=== PATIENT | female | born 1980 | race Caucasian/White ===

== ENCOUNTER 2022-02-09 08:55 | Observation (INO) | payer BC, SELFPAY ==
--- NOTE | ~2022-02-09 | XR_ITS ---
EXAMINATION: XR HAND, RIGHT CLINICAL INFORMATION: Infection COMPARISON: None TECHNIQUE: PA, lateral, and oblique views of the right hand. FINDINGS: The bones and soft tissues are normal. No fracture. Alignment is anatomic. Joint spaces are maintained. No erosions or soft tissue calcifications. XR/XR hand RT 2V IMPRESSION: No acute osseous abnormality of the right hand.
[2022-02-09 09:09] VITALS: BP 125/73; PULSE 75; RESP 16; TEMP 36.4; O2SAT 100; BMI 31.1
--- NOTE | 2022-02-09 09:16 | ED.GENADULT ---
HPI - General Adult General Chief complaint: Skin/Abscess/Foreign Body Stated complaint: Insect bite Time Seen by Provider: 02/09/22 09:16 Source: patient Mode of arrival: ambulatory Limitations: no limitations History of Present Illness HPI narrative: Patient is a 41 year old assigned female at with no reported medical history presenting to the emergency department today with a worsening right hand infection. Patient states that 3 days ago she got bit by something on her right hand and it began to itch. Patient states that 2 days ago she noticed it was swollen and red so she went to the urgent care and was started on Doxycycline. Patient states that it is not getting better and it is actually getting worse with streaking up her right arm now. Patient states that it is difficult to flex her right fingers secondary to pain. Patient denies any dizziness, lightheadedness, abdominal pain, nausea, vomiting, fever, chills, blurry vision, double vision, loss of vision, chest pain, difficulty breathing, shortness of breath, back pain, night sweats, pain with urination, increased urinary frequency, increased urinary urgency, blood in her urine or stool, syncope or a near syncopal episode, bowel incontinence, bladder incontinence, bowel retention, bladder retention, or any other complaints at this time. Onset (ago): day(s) (3) Location: right and upper extremity Radiation: non-radiation Severity: moderate Severity scale (1-10): 4 Relieving factors: none Exacerbating factors: movement Associated symptoms: denies other symptoms Treatments prior to arrival: other (doxycycline) Related Data Allergies Allergy/AdvReac Type Severity Reaction Status Date / Time No Known Allergies Allergy Verified 02/09/22 09:08 Review of Systems Constitutional: Constitutional: Reports no additional constitutional complaints, Denies chills, Denies fever(s) and Denies night sweats Eyes: Eyes: Reports no additional eye complaints, Denies blurry vision, Denies change in vision, Denies diplopia, Denies eye discharge, Denies loss of vision and Denies eye pain ENT: Denies dizziness Cardiovascular: Cardiovascular: Reports no additional cardiovascular complaints, Denies chest pain, Denies lightheadedness, Denies Loss of Consciousness and Denies dyspnea Respiratory: Respiratory: Reports no additional respiratory complaints and Denies dyspnea Gastrointestinal: Gastrointestinal: Reports no additional gastrointestinal complaints, Denies abdominal pain, Denies melena, Denies hematochezia, Denies change in bowel habits and Denies change in stool character Genitourinary: Genitourinary: Denies hematuria, Denies urinary frequency, Denies dysuria, Denies urinary incontinence, Denies urinary hesitancy and Denies urinary urgency Musculoskeletal: Musculoskeletal: Reports no additional musculoskeletal complaints, Denies numbness and Denies tingling Comments: right hand pain, right hand swelling Neurologic: Denies dizziness, Denies loss of vision, Denies numbness and Denies tingling Psychiatric: Psychiatric: Reports no additional psychiatric complaints Endocrine: Endocrine: Reports no additional endocrine complaints Hematologic/Lymphatic: Hematologic/Lymphatic: Reports no additional hematologic/lymphatic complaints Allergic/Immunologic: Allergic/Immunologic: Reports no additional allergic/immunologic complaints [facility] Past Medical History Attestation statement: The following information was validated with the patient. Source: old records reviewed Social History Social History Advance Directives: Yes Advance Directives Information Provided: Yes Advance Directives on File: No Physical Exam ED Vital Signs: Vital Signs - 24 hr 02/09/22 09:09 Temperature 97.6 F Pulse Rate 75 Respiratory Rate 16 Blood Pressure 125/73 Pulse Oximetry 100 Oxygen Delivery Method Room Air BMI result Body Mass Index 31.1 Const General: cooperative, no acute distress, alert and awake Nutritional Appearance: well nourished Orientation/consciousness: patient oriented x3 Limitations: no limitations HENMT Head: Yes normal to inspection and Yes atraumatic Ears: hearing grossly normal bilaterally and external ears normal General nose exam: Normal external nose present, no nasal discharge noted and no epistaxis Face and sinus: Yes normal facial exam, No abrasion and No laceration Mouth: Normal oral and palatal mucosa present, no drooling and no muffled voice Eyes General: appearance normal, both eyes and all related structures Periorbital: periorbital findings normal Eyelids: Yes eyelids normal Conjunctivae: conjunctivae normal Pupils: Equal, round and reactive pupils present EOM: EOMs intact bilaterally Neck Neck: Yes normal visual inspection, Yes full ROM and Yes no lymphadenopathy Chest Chest palpation & inspection: normal inspection of the chest Resp Effort & Inspection: normal respiratory effort and able to speak in complete sentences Auscultation: clear to auscultation bilaterally Cardio Rate: regular rate Rhythm: regular rhythm GI Inspection: Yes normal to inspection Neuro General: patient oriented x3 and moves all extremities Cranial nerves: Yes Equal, round and reactive pupils present Cognition (Neuro): normal cognition Motor exam (neuro): 5/5 motor strength present throughout Sensory Exam: Normal double simultaneous stimulation for sensation Coordination: [id number] test normal Extrem Other: ROM of the right hand reduced secondary to pain, specifically with eflexion of the MCP joint General: Yes capillary refill normal Psych Appearance: grossly normal Mental Status: mental status grossly normal Affect: normal affect Attitude: cooperative Thought process: Normal thought process present Thought content: Normal thought content present Insight: Good insight present (Psych) Medical Decision Making MDM Narrative Medical decision making narrative: Patient is a 41 year old assigned female at with no reported medical history presenting to the emergency department today with right hand pain. Patient's physical exam showed erythema, swelling, and warmth to the right dorsal hand as pictured in the chart with distal streaking up the right arm. Patient's blood work showed an elevated CRP but was otherwise unremarkable. Patient's right hand x-ray showed no acute process. Patient was given IV Zosyn while in the department. Patient is not septic. Patient's current clinical presentation is most consistent with cellulitis that has failed out patient treatment. I spoke to the hospitalist team who agreed to hospital admission. I explained my physical exam findings as well as all test results to the patient. I answered all questions asked by the patient. Patient verbalized agreement and understanding with this treatment plan and admission. Medical Records Medical records reviewed: Yes I reviewed the patient's medical records. Lab Data Lab results reviewed: Yes I reviewed the patient's lab results. Result diagrams: 02/09/22 09:42 02/09/22 09:42 Labs: Lab Results 02/09/22 02/09/22 02/09/22 Range/Units 09:41 09:42 09:42 WBC 7.3 (4.8-10.8) X10*3/uL RBC 4.85 (4.20-5.50) X10*6/uL Hgb 11.5 L (12.0-16.0) g/dl Hct 37.4 (37.0-47.0) % MCV 77.1 L (80.0-98.0) fL MCH 23.7 L (27.0-33.0) pg MCHC 30.7 L (31.0-35.0) g/dl RDW 14.6 (11.0-16.0) % Plt Count 307 (160-400) X10*3/uL MPV 8.8 L (9.4-12.3) fL Immature Gran % (Auto) 0.3 (0.0-0.4) % Neut % (Auto) 64.4 (45-73) % Lymph % (Auto) 25.9 (20-40) % Nelson % (Auto) 6.9 (2-11) % Eos % (Auto) 2.1 (0-4) % Baso % (Auto) 0.4 (0-2) % Lymph # (Auto) 1.9 (1.2-4.9) X10*3/uL Nelson # (Auto) 0.5 (0.1-1.2) X10*3/uL Eos # (Auto) 0.2 (0.0-0.4) X10*3/uL Baso # (Auto) 0.0 (0.0-0.2) X10*3/uL Abs Immat Gran (auto) 0.02 (0.00-0.03) X10*3/uL Absolute Neuts (auto) 4.7 (2.0-8.3) x10*3/uL Absolute Nucleated RBC 0.000 (0.0-0.012) X10*3/uL Nucleated RBC % (auto) 0.0 (0.0-0.2) /100WBC ESR 14 (0-20) MM/HR Sodium (135-145) mmol/L Potassium (3.3-5.1) mmol/L Chloride (96-108) mmol/L Carbon Dioxide (22-29) mmol/L Anion Gap (12-20) BUN (9-16) mg/dL Creatinine (0.5-1.4) mg/dL Estim Creat Clear Calc Estimated GFR Random Glucose (60-115) mg/dL Lactic Acid 1.9 (0.5-2.0) mmol/L Calcium (8.4-10.2) mg/dL Total Bilirubin (0.0-1.0) mg/dL AST (5-31) U/L ALT (0-31) U/L Alkaline Phosphatase (39-117) U/L C-Reactive Protein (< or = 0.50) mg/dL Total Protein (6.5-8.0) g/dL Albumin (3.5-5.0) g/dL COVID-19 (DIONNA) (Negative) COVID-19 Clin Com 02/09/22 02/09/22 Range/Units 09:42 09:52 WBC (4.8-10.8) X10*3/uL RBC (4.20-5.50) X10*6/uL Hgb (12.0-16.0) g/dl Hct (37.0-47.0) % MCV (80.0-98.0) fL MCH (27.0-33.0) pg MCHC (31.0-35.0) g/dl RDW (11.0-16.0) % Plt Count (160-400) X10*3/uL MPV (9.4-12.3) fL Immature Gran % (Auto) (0.0-0.4) % Neut % (Auto) (45-73) % Lymph % (Auto) (20-40) % Nelson % (Auto) (2-11) % Eos % (Auto) (0-4) % Baso % (Auto) (0-2) % Lymph # (Auto) (1.2-4.9) X10*3/uL Nelson # (Auto) (0.1-1.2) X10*3/uL Eos # (Auto) (0.0-0.4) X10*3/uL Baso # (Auto) (0.0-0.2) X10*3/uL Abs Immat Gran (auto) (0.00-0.03) X10*3/uL Absolute Neuts (auto) (2.0-8.3) x10*3/uL Absolute Nucleated RBC (0.0-0.012) X10*3/uL Nucleated RBC % (auto) (0.0-0.2) /100WBC ESR (0-20) MM/HR Sodium 139 (135-145) mmol/L Potassium 4.4 (3.3-5.1) mmol/L Chloride 105 (96-108) mmol/L Carbon Dioxide 24 (22-29) mmol/L Anion Gap 14 (12-20) BUN 7 L (9-16) mg/dL Creatinine 0.80 (0.5-1.4) mg/dL Estim Creat Clear Calc 104.1 Estimated GFR > 60 Random Glucose 91 (60-115) mg/dL Lactic Acid (0.5-2.0) mmol/L Calcium 9.6 (8.4-10.2) mg/dL Total Bilirubin 0.4 (0.0-1.0) mg/dL AST 16 (5-31) U/L ALT 18 (0-31) U/L Alkaline Phosphatase 93 (39-117) U/L C-Reactive Protein 2.10 H (< or = 0.50) mg/dL Total Protein 7.5 (6.5-8.0) g/dL Albumin 4.4 (3.5-5.0) g/dL COVID-19 (DIONNA) Negative (Negative) COVID-19 Clin Com See Note Imaging Data Right hand x-ray: Attestation: I personally reviewed and interpreted this imaging study as follows: My impression: No acute moe process. Radiologist's impression: EXAMINATION: XR HAND, RIGHT CLINICAL INFORMATION: Infection? COMPARISON: None? TECHNIQUE: PA, lateral, and oblique views of the right hand. FINDINGS: The bones and soft tissues are normal. No fracture. Alignment is anatomic. Joint spaces are maintained. No erosions or soft tissue calcifications.? XR/XR hand RT 2V IMPRESSION: No acute osseous abnormality of the right hand. Dictated By: Monroe Hicks MD Signed By: Electronically signed by Monroe Hicks MD 02/09/22 1026 Critical Care Time Critical Care Time Critical Care Time: Yes Total Critical Care Time: 30 Attestation: I spent 30 minutes of Critical Care Time with this patient. This does not include time spent on separately reported billable procedures. Discharge Plan Discharge Clinical Impression: Cellulitis Patient Disposition: Admitted As Inpatient
[2022-02-09 09:48] LABS: MANUAL DIFF FLAG NO
[2022-02-09 09:49] LABS: Basophils Percent Auto 0.4 % (0-2); Eosinophils Absolute Auto 0.2 X10*3/uL (0.0-0.4); Eosinophils Percent Auto 2.1 % (0-4); Hematocrit 37.4 % (37.0-47.0); Hemoglobin 11.5 g/dl (12.0-16.0); Imm Gran Abs Auto 0.02 X10*3/uL (0.00-0.03); Imm Gran Pct Auto 0.3 % (0.0-0.4); Lymphocytes Absolute Auto 1.9 X10*3/uL (1.2-4.9); Lymphocytes Percent Auto 25.9 % (20-40); Mean Corpuscular HGB Conc 30.7 g/dl (31.0-35.0); Mean Corpuscular Hemoglobin 23.7 pg (27.0-33.0); Mean Corpuscular Volume 77.1 fL (80.0-98.0); Mean Platelet Volume 8.8 fL (9.4-12.3); Monocytes Absolute Auto 0.5 X10*3/uL (0.1-1.2); Monocytes Percent Auto 6.9 % (2-11); Neutrophils Absolute Auto 4.7 x10*3/uL (2.0-8.3); Neutrophils Percent Auto 64.4 % (45-73); Platelet Count 307 X10*3/uL (160-400); Red Blood Count 4.85 X10*6/uL (4.20-5.50); Red Cell Distribution Width 14.6 % (11.0-16.0); White Blood Count 7.3 X10*3/uL (4.8-10.8)
[2022-02-09 10:01] LABS: Lactic Acid 1.9 mmol/L (0.5-2.0)
[2022-02-09 10:07] LABS: Alanine Aminotransferase 18 U/L (0-31); Albumin Level 4.4 g/dL (3.5-5.0); Alkaline Phosphatase 93 U/L (39-117); Anion Gap 14 (12-20); Aspartate Amino Transferase 16 U/L (5-31); Bilirubin Total 0.4 mg/dL (0.0-1.0); Blood Urea Nitrogen 7 mg/dL (9-16); Calcium 9.6 mg/dL (8.4-10.2); Carbon Dioxide 24 mmol/L (22-29); Chloride 105 mmol/L (96-108); Creatinine Clr Calc Pharmacy 104.1; Estimated Glomerular Filt Rate > 60; Glucose Random 91 mg/dL (60-115); Potassium 4.4 mmol/L (3.3-5.1); Sodium 139 mmol/L (135-145); Total Protein 7.5 g/dL (6.5-8.0)
[2022-02-09] MEDS: Piperacillin Sodium/Tazobactam 3.375 GM in 0.9 % Sodium Chloride 50 ML IV ×3 (10:13→23:49)
[2022-02-09 10:36] LABS: COVID-19 Test Negative (Negative)
[2022-02-09 10:43] LABS: Erythrocyte Sedimentation Rate 14 MM/HR (0-20)
--- NOTE | 2022-02-09 11:44 | P.HPHOSP_ITS ---
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 She presents to the ED with a 2 day history of hand symptoms. She endorses that 2 days prior to hospitalization she noticed her R hand (MCP joint of 4th digit) was itching her. Later she noted an indurated area and this subsequently progressed to pain, increase in erythema and decreased ROM. She had a tele health visit on the day prior to admission and was prescribed oral doxycycline, of which she has taken 3 doses. She reports that she woek up on the morning of admission with worsening of all her symptoms and hence presented to the ED. She denies any fevers or chills. Work up in the ED revealed a hand XR without any significant findings. CRP is elevated (2.1) with a normal ESR. She has been given a dose of IV zoysn. ED provider has reached out to the hand surgeon. The patient is seen and examined in [facility] around 1130. Compared to the pictures taken in the ED, her erythem has improved. The patient patient reports that her ROM has improved, but she still feels tightness as if her skin is going to tear. She denies any numbness, tingling. Review of Systems Review of Systems: negative except HPI [facility] Medical History (Updated 02/09/22 @ 12:07 by Gary Valle MD) No pertinent past medical history Family History (Updated 02/09/22 @ 12:07 by Gary Valle MD) Mother Thyroid cancer Surgical History (Updated 02/09/22 @ 12:07 by Gary Valle MD) No pertinent past surgical history Social History (Updated 02/09/22 @ 12:08 by Gary Valle MD) Patient Tobacco Use Status: Never used Tobacco Use of substances other than those prescribed or required for medical reasons: No Advance Directives: Yes Advance Directives Information Provided: Yes Advance Directives on File: No Meds Allergies Allergy/AdvReac Type Severity Reaction Status Date / Time No Known Allergies Allergy Verified 02/09/22 09:08 Active Medications: Current Medications Pharmacy Consult (Consult Rx Perform Med Rec) 1 each MISCELLANE ONCE PRN PRN Reason: Consult order Home Medications Medication Instructions Recorded Confirmed Last Taken Type dicloxacillin 500 mg capsule 1 cap PO QID 02/09/22 02/09/22 02/09/22 07:00 History loratadine 10 mg tablet (Claritin) 10 mg PO DAILY 02/09/22 02/09/22 02/08/22 History omeprazole 20 mg capsule,delayed 20 mg PO DAILY 02/09/22 02/09/22 02/08/22 History release Physical Exam Vital Signs and Narrative: Vital Signs: Last Vital Signs Temp 97.6 F 02/09/22 09:09 Pulse 75 02/09/22 09:09 Resp 16 02/09/22 09:09 BP 125/73 02/09/22 09:09 Pulse Ox 100 02/09/22 09:09 O2 Del Method 02/09/22 09:09 BMI result Body Mass Index 31.1 Const: Other: Constitutional - Awake and Alert, No apparent distress Eyes - PERRLA, EOMI Cardiovascular - S1S2, RRR, No edema Respiratory - Normal lung expansion, Normal respiratory effort, No respiratory distress, CTA bilaterally Gastrointestinal - NT / ND; +BS; No rebound or guarding - No CVA tenderness Extremities - no calf tenderness bilaterally, no swelling Musculoskeletal - see pictures below Skin - Warm/Dry Neurological - Alert & oriented x3, No focal deficit Psychological - Appropriate affect Skin: Other: picture from the ED prior to antibiotic administration -- erythema has started to wane at the time of admission; ROM of hand improved per patient, able to nearly make a fast; TTP at MCP joint and surrounding region Results Labs CBC and Chem 7: 02/09/22 09:42 02/09/22 09:42 Labs: Laboratory Results - last 24 hr 02/09/22 02/09/22 02/09/22 09:41 09:42 09:42 MCV 77.1 L MCH 23.7 L MCHC 30.7 L RDW 14.6 Plt Count 307 MPV 8.8 L Immature Gran % (Auto) 0.3 Neut % (Auto) 64.4 Lymph % (Auto) 25.9 Cowley % (Auto) 6.9 Eos % (Auto) 2.1 Baso % (Auto) 0.4 Lymph # (Auto) 1.9 Cowley # (Auto) 0.5 Eos # (Auto) 0.2 Baso # (Auto) 0.0 Abs Immat Gran (auto) 0.02 Absolute Neuts (auto) 4.7 Absolute Nucleated RBC 0.000 Nucleated RBC % (auto) 0.0 ESR 14 Anion Gap Estim Creat Clear Calc Estimated GFR Random Glucose Lactic Acid 1.9 Calcium Total Bilirubin AST ALT Alkaline Phosphatase C-Reactive Protein Total Protein Albumin COVID-19 (DIONNA) COVID-19 Clin Com 02/09/22 02/09/22 09:42 09:52 MCV MCH MCHC RDW Plt Count MPV Immature Gran % (Auto) Neut % (Auto) Lymph % (Auto) Cowley % (Auto) Eos % (Auto) Baso % (Auto) Lymph # (Auto) Cowley # (Auto) Eos # (Auto) Baso # (Auto) Abs Immat Gran (auto) Absolute Neuts (auto) Absolute Nucleated RBC Nucleated RBC % (auto) ESR Anion Gap 14 Estim Creat Clear Calc 104.1 Estimated GFR > 60 Random Glucose 91 Lactic Acid Calcium 9.6 Total Bilirubin 0.4 AST 16 ALT 18 Alkaline Phosphatase 93 C-Reactive Protein 2.10 H Total Protein 7.5 Albumin 4.4 COVID-19 (DIONNA) Negative COVID-19 Clin Com See Note Imaging Radiologist's Impressions: Impressions Hand X-Ray 02/09/22 10:12 IMPRESSION: No acute osseous abnormality of the right hand. Assessment and Plan (1) Cellulitis: Status: Acute Plan 41 yo F with no significant PMH who is admitted for hand cellulitis s/p what appears to be an insect bite. Her condition has worsening with oral antibiotics and hence will require IV antibiotics. 1. R hand cellulitis likely secondary to insect bite appears to be improving with a dose of IV antibiotics in the ED will continue zosyn and add vancomcyin; monitor renal function while on vancomcyin hand surgery consult -- although based on her improvement with IV zosyn, unlikely she will need surgical intervention the patient does not have severe sepsis at this time Full Code DVT pptx -- low risk, early ambulation Quality Stroke Does the patient have a stroke diagnosis?: No VTE Prior VTE?: No VTE Risk Level:: Medical - low VTE Device Contraindication: Treatment Not Indicated VTE Drug Contraindication: Treatment Not Indicated
--- NOTE | 2022-02-09 13:23 | PHA.PROG ---
Admission Date/Time: February 09, 2022 11:42 Indication: Skin and Skin structure infection Weight in k.543 kg Adjusted body weight in K.597 kg [place] body weight in K.3 kg Obesity Dosing Indication % IBW: Used obese model Serum Creatinine - Last 168 Hours 02/09/22 09:42 Creatinine 0.80 Estimated CrCl and GFR - Last 168 Hours 02/09/22 09:42 Estim Creat Clear Calc 104.1 Estimated GFR > 60 Vancomycin Loading Dose: 2000 mg Current Vancomycin Dosing Regimen: 1000 mg Q12hr Vancomycin Monitoring using AUC goal of 400 - 600 range with trough as surrogate marker: 510 mg/L/hr Date and Time for next Vancomycin Level to be drawn: 02/11 @1100 Pharmacist Comments on Vancomycin Plan: Used Obese model. Patient is below 65 years old therefore Q12h dosing chosen. Predicted AUC 510 mg/L/hr. Pharmacy will continue to monitor renal function. Level to be drawn after 3 doses on 02/11 @1100 Vancomycin dosing will take advantage of [employer] as a clinical decision support tool that uses Bayesian modeling to calculate individual patient's pharmacokinetic parameters and forecast the patient's drug concentration time course with the target goal AUC 24 range of 400 - 600 mg/L/hr.
--- NOTE | 2022-02-09 14:53 | PM.EVENT ---
Event Note Date of Service: 02/09/22 Event Note: Notified by RN that patient was having a reaction to vancomcyin infusion. Pt seen and examined. Flushing / redness noted to face/neck/partial upper torso -- no hives or erythema throughout body. Likely vancomcyin infusion related reaction and not allergy. Nonetheless, will hold vancomcyin for now as the patient had shown improvement on zosyn alone. monitor closely IV benadryl x 1 now
[2022-02-09 15:53] VITALS: BP 123/67; PULSE 67; RESP 16; TEMP 36.9; O2SAT 97
--- NOTE | 2022-02-09 16:09 | PM.CNOR ---
History of Present Illness HPI Consult date: 02/09/22 Chief complaint: hand pain, cellulitis Narrative: the patient is a 41-year-old woman who appreciated that she likely had some kind of a bug bite, which he thought was a mosquito bite, about 3 days ago on the dorsal aspect of her right hand just proximal to the 4th MCP joint. She scratched it because it was itching. She then appreciated increasing pain redness and swelling which is now developed into lymphangitis extending up the dorsal aspect of her forearm. We were asked to see her while she is in the emergency department today. [facility] Past Medical History Medical History (Updated 02/09/22 @ 16:12 by Alison Johnson MD) No pertinent past medical history Family History Family History (Updated 02/09/22 @ 12:07 by Gary Valle MD) Mother Thyroid cancer Surgical History Surgical History (Updated 02/09/22 @ 12:07 by Gary Valle MD) No pertinent past surgical history Social History Social History (Updated 02/09/22 @ 12:08 by Gary Valle MD) Patient Tobacco Use Status: Never used Tobacco Use of substances other than those prescribed or required for medical reasons: No Advance Directives: Yes Advance Directives Information Provided: Yes Advance Directives on File: No Meds Allergies Allergy/AdvReac Type Severity Reaction Status Date / Time VANCOMYCIN INFUSION REACTION AdvReac Redness of Uncoded 02/09/22 14:53 Skin Active Medications: Current Medications Acetaminophen (Acetaminophen 325 Mg Tablet) 650 mg PO Q6H PRN PRN Reason: Pain, Mild (Pain Scale 1-3) Diphenhydramine HCl 25 mg/ (Sodium Chloride) 50.5 mls @ 200 mls/hr IV ONCE ZAKIA Last Infusion: 02/09/22 15:24 Dose: Infused Piperacillin Sod/Tazobactam (Sod 3.375 gm/ Sodium Chloride) 50 mls @ 100 mls/hr IV Q6H ZAKIA Ondansetron HCl (Ondansetron Hcl 4 Mg/2 Ml Vial) 4 mg IVPUSH Q8H PRN PRN Reason: Nausea and Vomiting Pharmacy Consult (Consult Rx Perform Med Rec) 1 each MISCELLANE ONCE PRN PRN Reason: Consult order Pharmacy Consult (Consult Rx Vancomycin Dosing) 1 each MISCELLANE DAILY PRN PRN Reason: Consult order Sodium Chloride (0.9 % Sodium Chloride Flush 3 Ml Syringe) 3 ml IVFLUSH QSHIFT [facility] Home Medications Medication Instructions Recorded Confirmed Last Taken Type dicloxacillin 500 mg capsule 1 cap PO QID 02/09/22 02/09/22 02/09/22 07:00 History loratadine 10 mg tablet (Claritin) 10 mg PO DAILY 02/09/22 02/09/22 02/08/22 History omeprazole 20 mg capsule,delayed 20 mg PO DAILY 02/09/22 02/09/22 02/08/22 History release Physical Exam Vital Signs: Vital Signs: Last Vital Signs Temp 98.5 F 02/09/22 15:53 Pulse 67 02/09/22 15:53 Resp 16 02/09/22 15:53 BP 123/67 02/09/22 15:53 Pulse Ox 97 02/09/22 15:53 O2 Del Method 02/09/22 15:53 BMI result Body Mass Index 31.1 Const: General: cooperative, healthy appearing and no acute distress Orientation/consciousness: oriented to person and oriented to place HEENT: Head: Yes normocephalic and Yes atraumatic Eyes: EOM: EOMs intact bilaterally Resp: Effort & Inspection: normal respiratory effort and able to speak in complete sentences Cardio: Jugular venous distension: no JVD Skin: General skin exam: turgor normal Rashes: no rashes Neuro: General: oriented to person and oriented to place Extrem: Other: Evaluation of Right Upper Extremity: Neuro: Median, ulnar, radial nerves motor and sensory intact. Vascular: Cap refill brisk. ROM: Can bring fingers closed to a week fist and back out to nearly full extension. Can oppose thumb to fingertips Smooth and painless wrist ROM Skin: No lacerations or abrasions. General: No eccymosis. No erythema or evidence of infection. she has a 4 mm dark raised lesion where she felt she had a bug bite just proximal to the dorsal aspect of her 4th MCP joint. She has surrounding erythema with lymphangitis extending up the dorsal aspect of her forearm past her elbow. The area is mildly tender. There is no fluctuance or evidence of abscess at this time. There is no evidence of tenosynovitis. She has painless wrist range of motion. No evidence of joint sepsis.: Psych: Appearance: grossly normal Affect: normal affect Attitude: cooperative Results Labs Result Diagrams: 02/09/22 09:42 02/09/22 09:42 Labs: Abnormal lab results 02/09/22 02/09/22 Range/Units 09:42 09:42 Hgb 11.5 L (12.0-16.0) g/dl MCV 77.1 L (80.0-98.0) fL MCH 23.7 L (27.0-33.0) pg MCHC 30.7 L (31.0-35.0) g/dl MPV 8.8 L (9.4-12.3) fL BUN 7 L (9-16) mg/dL C-Reactive Protein 2.10 H (< or = 0.50) mg/dL H & H 02/09/22 Range/Units 09:42 Hgb 11.5 L (12.0-16.0) g/dl Hct 37.4 (37.0-47.0) % All other labs normal. Assessment and Plan (1) Cellulitis of right hand: Status: Acute Plan assessment and plan: 1. Right dorsal hand cellulitis with his ascending lymphangitis status post possible bug bite no operative indications at this time. She will be admitted to the hospitalist team for IV antibiotics. Thank you for this consult. Procedures Date of Service Date of Service: 02/09/22
[2022-02-09] MEDS: 0.9 % Sodium Chloride Flush 3 ML SYRINGE IVFLUSH ×2 (16:55→23:54)
[2022-02-09 19:07] VITALS: BP 130/72; PULSE 82; RESP 20; TEMP 36.8; O2SAT 100
--- NOTE | 2022-02-09 19:28 | PC.NURSE ---
[place] text sent to RN for report. Pt being transferred to room 375.
--- NOTE | 2022-02-09 20:04 | PC.NURSE ---
RN to RN report provided NIALL Yee. Pt to be transferred to room 375. Pt aware of plan of care.
[2022-02-09 20:57] VITALS: BP 131/60; PULSE 78; RESP 20; TEMP 36.6; O2SAT 99
[2022-02-09 23:26] VITALS: BP 115/59; PULSE 55; RESP 16; TEMP 36.6; O2SAT 96
[2022-02-10] MEDS: Piperacillin Sodium/Tazobactam 3.375 GM in 0.9 % Sodium Chloride 50 ML IV ×4 (05:43→23:45)
[2022-02-10 06:52] VITALS: BP 130/58; PULSE 63; RESP 18; TEMP 36.1; O2SAT 97
[2022-02-10 06:53] LABS: Anion Gap 15 (12-20); Blood Urea Nitrogen 10 mg/dL (9-16); Calcium 8.9 mg/dL (8.4-10.2); Carbon Dioxide 23 mmol/L (22-29); Chloride 106 mmol/L (96-108); Creatinine Clr Calc Pharmacy 106.8; Creatinine Clr Calc Pharmacy 109.7; Estimated Glomerular Filt Rate > 60; Glucose Random 84 mg/dL (60-115); Potassium 4.6 mmol/L (3.3-5.1); Sodium 139 mmol/L (135-145)
[2022-02-10] MEDS: Loratadine 10 MG TABLET PO (08:50)
[2022-02-10] MEDS: Omeprazole 20 MG CAPSULE.DR PO (08:50)
[2022-02-10] MEDS: Doxycycline Hyclate 100 MG in 0.9 % Sodium Chloride 250 ML 166.67 MG IV ×2 (08:50→21:04)
[2022-02-10 14:54] VITALS: BP 116/56; PULSE 66; RESP 18; TEMP 36.6; O2SAT 97
--- NOTE | 2022-02-10 15:27 | HO.PM.IMPN ---
Subjective Subjective Date of Service: 02/10/22 Interval History: hand cellulitis Review of Systems somewhat improving Denies any chest pain shortness of breath or abdominal pain or fever chills. Physical Exam Vital Signs: Vital Signs: Last Vital Signs Temp 97.9 F 02/10/22 14:54 Pulse 66 02/10/22 14:54 Resp 18 02/10/22 14:54 BP 116/56 L 02/10/22 14:54 Pulse Ox 97 02/10/22 14:54 O2 Del Method 02/10/22 06:52 BMI result Body Mass Index 31.1 Appearance: Alert.? Oriented X3.? not in distress.? Eyes: Pupils equal, round and reactive to light.? Sclera nonicteric.? ENT: Pharynx normal.? Moist mucous membranes. cvs: rrr, [id number] . res: clear to auscultation ,no rhonchii or wheezing abd: no rebound or guarding ,nt, bs present. ext pulses present , no cyanosis right ext/arm -erythema somewhat improving ,hand pimple area unchanged ( please see h&p pic). neuro: axo3 , nonfocal. Objective Data Active Medications Acetaminophen (Acetaminophen 325 Mg Tablet) 650 mg PO Q6H PRN PRN Reason: Pain, Mild (Pain Scale 1-3) Diphenhydramine HCl 25 mg/ (Sodium Chloride) 50.5 mls @ 200 mls/hr IV ONCE [facility] Last Infusion: 02/09/22 15:24 Dose: 200 mls/hr Documented By: HASMUKH Piperacillin Sod/Tazobactam (Sod 3.375 gm/ Sodium Chloride) 50 mls @ 100 mls/hr IV Q6H [facility] Last Infusion: 02/10/22 13:28 Dose: 0 mls/hr Documented By: ARELY Doxycycline Hyclate 100 mg/ (Sodium Chloride) 250 mls @ 166.67 mls/hr IV Q12H [facility] Last Infusion: 02/10/22 10:36 Dose: 0 mls/hr Documented By: ARELY Loratadine (Loratadine 10 Mg Tablet) 10 mg PO DAILY [facility] Last Admin: 02/10/22 08:50 Dose: 10 mg Documented By: ARELY Omeprazole (Omeprazole 20 Mg Thomas.) 20 mg PO DAILY@0630 [facility] Last Admin: 02/10/22 08:50 Dose: 20 mg Documented By: ARELY Ondansetron HCl (Ondansetron Hcl 4 Mg/2 Ml Vial) 4 mg IVPUSH Q8H PRN PRN Reason: Nausea and Vomiting Pharmacy Consult (Consult Rx Perform Med Rec) 1 each MISCELLANE ONCE PRN PRN Reason: Consult order Pharmacy Consult (Consult Rx Vancomycin Dosing) 1 each MISCELLANE DAILY PRN PRN Reason: Consult order Sodium Chloride (0.9 % Sodium Chloride Flush 3 Ml Syringe) 3 ml IVFLUSH QSHIFT [facility] Last Admin: 02/10/22 08:55 Dose: Not Given Documented By: ARELY Non-Admin Reason: IV Running Labs CBC & Chem 7: 02/09/22 09:42 02/10/22 05:10 Labs: Laboratory Results - last 24 hr 02/10/22 02/10/22 05:10 05:10 Anion Gap 15 Estim Creat Clear Calc 109.7 106.8 Estimated GFR > 60 > 60 Random Glucose 84 Calcium 8.9 D Microbiology Microbiology Results: Microbiology 02/09/22 09:43 Blood Culture - Preliminary Blood - Venous No growth after 24 hours. 02/09/22 09:57 Blood Culture - Preliminary Blood - Venous No growth after 24 hours. Assessment and Plan (1) Cellulitis of right hand: Status: Acute Plan 41 yo F with? no significant PMH who is admitted for hand cellulitis s/p what appears to be an insect bite. Her condition has worsening with oral antibiotics and hence will require IV antibiotics. 1. R hand cellulitis likely secondary to insect bite appears to be improving with a dose of IV antibiotics. will continue zosyn and add doxycycline, monitor renal function blood culures pending hand surgery consult -no surgerical intervention, continue iv antibiotics the patient does not have severe sepsis at this time Full Code DVT pptx -- low risk, early ambulation inpatient need : R hand cellulitis need IV antibiotics. Quality Stroke Does the patient have a stroke diagnosis?: No VTE Prior VTE?: No VTE Risk Level:: Medical - low VTE Device Contraindication: Treatment Not Indicated VTE Drug Contraindication: Treatment Not Indicated
[2022-02-10] MEDS: 0.9 % Sodium Chloride Flush 3 ML SYRINGE IVFLUSH (15:57)
[2022-02-10 18:50] VITALS: BP 117/56; PULSE 70; RESP 18; TEMP 36.4; O2SAT 98
[2022-02-10 23:38] VITALS: BP 103/55; PULSE 75; RESP 16; TEMP 36.7; O2SAT 96
[2022-02-11] MEDS: 0.9 % Sodium Chloride Flush 3 ML SYRINGE IVFLUSH ×2 (00:35→09:19)
[2022-02-11] MEDS: Omeprazole 20 MG CAPSULE.DR PO (05:40)
[2022-02-11] MEDS: Piperacillin Sodium/Tazobactam 3.375 GM in 0.9 % Sodium Chloride 50 ML IV (05:42)
[2022-02-11 06:06] LABS: Creatinine Clr Calc Pharmacy 101.6; Estimated Glomerular Filt Rate > 60
--- NOTE | 2022-02-11 07:43 | P.DS_ITS ---
DS: Providers Provider Date of Service: 02/11/22 Date of admission: 02/09/22 11:42 Primary care physician: Nacho Connor MD Consults: 02/09/22 11:41 Consult to Orthopedics Routine Consulting Provider: Alison Johnson Reason for consultation: hand cellulitis, decreased ROM 02/11/22 07:38 Consult to Infectious Diseases Routine Consulting Provider: Elissa Campbell Reason for consultation: cellulitis/insect bite Has provider been notified: No DS: Diagnosis Discharge Diagnosis (1) Cellulitis of right hand: Status: Acute DS: Summary Hospital Course Hospital Course: The patient is a right hand dominant, 41 year old F with no significant 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 She presents to the ED with a 2 day history of hand symptoms. She endorses that 2 days prior to hospitalization she noticed her R hand (MCP joint of 4th digit) was itching her. Later she noted an indurated area and this subsequently progressed to pain, increase in erythema and decreased ROM. She had a tele health visit on the day prior to admission and was prescribed oral doxycycline, of which she has taken 3 doses. She reports that she woek up on the morning of admission with worsening of all her symptoms and hence presented to the ED. She denies any fevers or chills. Work up in the ED revealed a hand XR without any significant findings. CRP is elevated (2.1) with a normal ESR. She has been given a dose of IV zoysn. ED provider has reached out to the hand surgeon. The patient is seen and examined in [facility] around 1130. Compared to the pictures taken in the ED, her erythem has improved. The patient patient reports that her ROM has improved, but she still feels tightness as if her skin is going to tear. She denies any numbness, tingling. Hospital course: patient admitted for cellulitis/insect bite: started on iv antibiotics -seems imporving , blood culture preliminary negative . going home with po antibiotics. Above management discussed with the patient in detail length she understand and in agreement with the above plan, time spent 50 minutes and 50% time spent on counseling. Significant findings: As above. Procedures performed: None. Treatment and response: As above. Complications: None. Time Spent with Patient Time attestation: Total time spent providing and/or coordinating discharge services: Discharge coordination time: Greater than 30 minutes Quality: Safe Use of Opioids Does Pt have an Active Cancer Diagnosis on the Problem List?: No Quality: Stroke Does the patient have a stroke diagnosis?: No Physical Exam Vital Signs: Vital Signs: Last Vital Signs Temp 98.1 F 02/10/22 23:38 Pulse 75 02/10/22 23:38 Resp 16 02/10/22 23:38 BP 103/55 L 02/10/22 23:38 Pulse Ox 96 02/10/22 23:38 O2 Del Method 02/10/22 23:38 BMI result Body Mass Index 31.1 Appearance: Alert.? Oriented X3.? not in distress.? Eyes: Pupils equal, round and reactive to light.? Sclera nonicteric.? ENT: Pharynx normal.? Moist mucous membranes. cvs: rrr, [id number] . res: clear to auscultation ,no rhonchii or wheezing abd: no rebound or guarding ,nt, bs present. ext pulses present , no cyanosis right ext/arm -erythema somewhat improving ,hand pimple area dried up, no discharge. neuro: axo3 , nonfocal. DS: Data Data Completed and Pending Labs on day of discharge: Laboratory Results - last 24 hr 02/11/22 05:40 Creatinine 0.82 Estim Creat Clear Calc 101.6 Estimated GFR > 60 Preliminary micro results at discharge 02/09/22 09:43 Blood Culture - Preliminary Blood - Venous No growth after 24 hours. 02/09/22 09:57 Blood Culture - Preliminary Blood - Venous No growth after 24 hours. Additional Comments Additional comments: XR/XR hand RT 2V IMPRESSION: No acute osseous abnormality of the right hand. Discharge Plan Discharge Patient Disposition: Home, Self-Care Discharge Diagnosis: cellulitis Referrals: Nacho Connor MD [Primary Care Provider] - 1 Week Discharge Medications: New doxycycline hyclate 100 mg capsule 100 mg PO BID Qty: 14 0RF amoxicillin-pot clavulanate 875-125 mg tablet 1 tab PO BID Qty: 14 0RF Continued omeprazole 20 mg Capsule,Delayed Release(Dr/Ec) 20 mg PO DAILY loratadine [Claritin] 10 mg Tablet 10 mg PO DAILY Discontinued dicloxacillin 500 mg capsule 1 cap PO QID Discharge Orders: Discharge Order (Routine); Ordered 02/11/22 Ordered By: Amelia Fleming Diet: Advance to usual diet Activity on Discharge: As tolerated Stand Alone Forms: Patient Portal Discharge page Care Plan Goals: patient admitted for cellulitis/insect bite: started on iv antibiotics -seems imporving , blood culture preliminary negative . going home with po antibiotics. Health Concerns: please complete antibiotics course for 7 days. follow up with pcp. Plan of Treatment: as above. Assessment: as above. Patient Instructions: Cellulitis (DC)
[2022-02-11 07:45] VITALS: BP 109/54; PULSE 74; RESP 18; TEMP 36.3; O2SAT 96
--- NOTE | 2022-02-11 09:07 | MHC.CM.PN ---
Addendum entered by Deisi Haley RN 02/11/22 09:09: RICKI 02/10 IN CHART Original Note: PATIENT IS FULLY INDEPENDENT NO DME OR VNA. NOT COVID VACCINATED. SHE IS HOPING TO RETURN HOME TODAY WITH NO SERVICES. PLAN IS PO ABX. HCP COPY REQUESTED (SPOUSE)
[2022-02-11] MEDS: Doxycycline Hyclate 100 MG in 0.9 % Sodium Chloride 250 ML 166.67 MG IV (09:18)
[2022-02-11] MEDS: Loratadine 10 MG TABLET PO (09:18)
[2022-02-11 11:29] LABS: Vancomycin Random < 3.0 mcg/mL (15-20)
[2022-02-11 12:00] VITALS: BP 107/52; PULSE 72; RESP 18; TEMP 36.9; O2SAT 99
--- NOTE | 2022-02-11 12:40 | MHC.CM.PN ---
HOME - SELF CARE RN AWARE CAR IS IN LOT AND SHE WILL DRIVE SELF-HOME
[2022-02-11] MEDS: Amoxicillin/Potassium Clav 875 MG TABLET PO (12:46)
== END 2022-02-11 13:11 | disposition home or self-care (01) ==
LOC: HO.ED 11:37 → HO.EDOVER 11:48 → HO.S3 18:04
PROVIDERS: Physician Assistant Medical; Admitting Provider Family Medicine; Emergency Provider Emergency Medicine; PCP Internal Medicine; Visit Provider Internal Medicine
DX: L03.113 Cellulitis of right upper limb (principal); M79.641 Pain in right hand; Z20.822 Contact with and (suspected) exposure to COVID-19
CPT/HCPCS: 36415; 73120; 80048; 80053; 80202; 82565; 83605; 85025; 85652; 86140; 87040; 87635; 96365; 96366; 96367; 96375; 99218; 99285; J1200; J2543; J3370

== ENCOUNTER 2022-05-19 10:13 | Outpatient (REF) | payer BC, SELFPAY ==
[2022-05-19 11:29] LABS: MANUAL DIFF FLAG NO
[2022-05-19 12:51] LABS: Alanine Aminotransferase 19 U/L (0-31); Albumin Level 4.4 g/dL (3.5-5.0); Alkaline Phosphatase 95 U/L (39-117); Anion Gap 13 (12-20); Aspartate Amino Transferase 20 U/L (5-31); Bilirubin Total 0.5 mg/dL (0.0-1.0); Blood Urea Nitrogen 11 mg/dL (9-16); Calcium 9.5 mg/dL (8.4-10.2); Carbon Dioxide 26 mmol/L (22-29); Chloride 105 mmol/L (96-108); Cholesterol 225 mg/dL; Estimated Glomerular Filt Rate > 60; Glucose Random 86 mg/dL (60-115); HDL Cholesterol 66 mg/dL; Iron 55 mcg/dL (30-160); LDL Cholesterol Calculated 140 mg/dl; Percent Iron Saturation 14 % (15-50); Potassium 4.5 mmol/L (3.3-5.1); Sodium 139 mmol/L (135-145); Total Iron Binding Capacity 404 mcg/dL (228-428); Total Protein 7.4 g/dL (6.5-8.0); Triglycerides 96 mg/dL; Unsaturated Iron Binding 349 ug/dL
[2022-05-19 13:12] LABS: Ferritin 6 ng/mL (10-250); Free T4 (Free Thyroxine) 0.99 ng/dL (0.71-1.85); Thyroid Stimulating Hormone 1.21 uIU/mL (0.32-4.0); Vitamin D 25-OH Total 24.9 ng/mL (>30)
[2022-05-19 13:23] LABS: Folate 15.6 ng/mL (> or = 4.0); Vitamin B12 509 pg/mL (200-900)
[2022-05-19 13:53] LABS: Basophils Percent Auto 0.7 % (0-2); Eosinophils Absolute Auto 0.1 X10*3/uL (0.0-0.4); Hematocrit 37.3 % (37.0-47.0); Hemoglobin 11.2 g/dl (12.0-16.0); Imm Gran Abs Auto 0.01 X10*3/uL (0.00-0.03); Imm Gran Pct Auto 0.2 % (0.0-0.4); Lymphocytes Absolute Auto 1.5 X10*3/uL (1.2-4.9); Lymphocytes Percent Auto 25.7 % (20-40); Mean Corpuscular Hemoglobin 23.3 pg (27.0-33.0); Mean Corpuscular Volume 77.7 fL (80.0-98.0); Mean Platelet Volume 8.9 fL (9.4-12.3); Monocytes Absolute Auto 0.4 X10*3/uL (0.1-1.2); Monocytes Percent Auto 6.5 % (2-11); Neutrophils Absolute Auto 3.8 x10*3/uL (2.0-8.3); Neutrophils Percent Auto 64.9 % (45-73); Platelet Count 356 X10*3/uL (160-400); Red Cell Distribution Width 14.8 % (11.0-16.0); White Blood Count 5.9 X10*3/uL (4.8-10.8)
[2022-05-19 14:11] LABS: CT PCR NOT DETECTED (Not Detect.); NG PCR DETECTED (Not Detect.)
[2022-05-20 07:46] LABS: Syphilis Screen Nonreactive (Nonreactive)
[2022-05-20 08:23] LABS: HBsAGNum1 0.35 S/CO (0.00-0.99); HIV AB/AG Nonreactive (Nonreactive); HIV Num 1 0.05 S/CO (0.00-0.99); Hepatitis B Surface Antigen Negative (Negative); ~HepC Num1 0.11 S/CO (0.00-0.79); ~Hepatitis C Antibody Nonreactive (Nonreactive)
== END 2022-05-19 10:14 | disposition home or self-care (01) ==
LOC: HO.MANLDS 10:13
PROVIDERS: Visit Provider Physician Assistant
DX: Z00.00 Encounter for general adult medical examination without abnormal findings (principal); Z11.4 Encounter for screening for human immunodeficiency virus [HIV]; Z11.3 Encounter for screening for infections with a predominantly sexual mode of transmission
CPT/HCPCS: 0353U; 80053; 80061; 82306; 82607; 82728; 82746; 83540; 84439; 84443; 85025; 86780; 86803; 87340; 87389

== ENCOUNTER 2023-03-17 09:17 | Emergency (ER) | payer BC, SELFPAY ==
--- NOTE | ~2023-03-17 | US_ITS ---
EXAMINATION: US VENOUS ULTRASOUND WITH DOPPLER LOWER EXTREMITY, LEFT CLINICAL INFORMATION: Possible superficial thrombophlebitis medial calf COMPARISON: Tibia and fibula films same date TECHNIQUE: Ultrasound of the deep veins is performed from the hip to the calf with compression sonography and color and pulse Doppler assessment. Spectral analysis with color-flow imaging is performed. FINDINGS: There is normal venous compression and respiratory variation and augmented flow in the deep venous system. The visualized common femoral vein, superficial femoral vein, profunda femoral vein, popliteal vein, and the trifurcation region shows no evidence of deep venous thrombosis. There is no significant popliteal fossa cyst. In the proximal medial calf left greater saphenous vein is a small area of noncompressible thrombus. This is consistent with superficial thrombophlebitis. Adjacent varicose veins are noted. Incidental note is made of a lymph node in the left inguinal region at 11 x 5 x 6 mm. If the patient's symptoms persist, followup ultrasound in 5 days 7 days might be of value to exclude proximal propagation from a non-visualized calf vein. US/US venous duplex LE LT IMPRESSION: No DVT demonstrated in the left lower extremity. Focal superficial thrombophlebitis noted in the area of interest.
--- NOTE | ~2023-03-17 | XR_ITS ---
EXAMINATION: XR TIBIA AND FIBULA, LEFT CLINICAL INFORMATION: Tenderness medial aspect of left leg COMPARISON: None available. TECHNIQUE: AP and lateral views of the left tibia and fibula were obtained. FINDINGS: The bones and soft tissues are normal. No fracture. No osseous lesions. XR/XR tibia fibula LT 2V IMPRESSION: Normal left tibia and fibula.
[2023-03-17 09:32] VITALS: BP 141/84; PULSE 92; RESP 18; TEMP 36.8; O2SAT 98; BMI 31.6
--- NOTE | 2023-03-17 10:39 | ED_ITS ---
HPI - General Adult General Chief complaint: Extremity Injury, Lower Stated complaint: Lump L Side of Leg Time Seen by Provider: 03/17/23 10:20 Source: patient Mode of arrival: ambulatory Limitations: no limitations History of Present Illness HPI narrative: 42-year-old female healthy on control pills presents to ED for tender lump on the medial aspect of left leg for the past couple of days. Patient denies any recent trauma to the area. Patient states no chest pain, shortness of breath, coughing up blood, recent long travel, recent surgery, or any significant leg swelling. Patient states no other complaints. Related Data Home Medications Medication Instructions Recorded Confirmed loratadine 10 mg tablet (Claritin) 10 mg PO DAILY 02/09/22 02/09/22 omeprazole 20 mg capsule,delayed 20 mg PO DAILY 02/09/22 02/09/22 release Previous Rx's Medication Instructions Recorded amoxicillin 875 mg-potassium 1 tab PO BID #14 tabs 02/11/22 clavulanate 125 mg tablet doxycycline hyclate 100 mg capsule 100 mg PO BID #14 caps 02/11/22 naproxen 500 mg tablet 500 mg PO BID PRN pain 7 days #14 03/17/23 tabs Allergies Allergy/AdvReac Type Severity Reaction Status Date / Time VANCOMYCIN INFUSION REACTION AdvReac Redness of Uncoded 02/09/22 14:53 Skin Review of Systems 2 Review of Systems: Left leg tender area/lump Yes all other systems are reviewed and are negative [facility] Past Medical History Medical History (Updated 03/17/23 @ 13:07 by DUDLEY Moulton) No pertinent past medical history Surgical History (Updated 02/09/22 @ 12:07 by Gary Valle MD) No pertinent past surgical history Family History Family History (Updated 02/09/22 @ 12:07 by Gary Valle MD) Mother Thyroid cancer Social History (Updated 02/09/22 @ 12:08 by Gary Valle MD) Household Members: Spouse Housing: House Do you presently have visiting nurse or other home services: No Patient Tobacco Use Status: Never used Tobacco Advance Directives: Yes Advance Directives on File: Yes Advance Directives Date on File: 02/09/22 service: No Current occupational status: employed Physical Exam ED Vital Signs: Vital Signs - 24 hr 03/17/23 09:32 03/17/23 12:49 Temperature 98.2 F 98.2 F Pulse Rate 92 83 Respiratory Rate 18 18 Blood Pressure 141/84 H 136/84 Pulse Oximetry 98 98 Oxygen Delivery Method Room Air Room Air BMI result Body Mass Index 31.6 Const General: cooperative, healthy appearing, comfortable, no acute distress, well developed, alert, awake and Physically active Orientation/consciousness: oriented to person, oriented to place, oriented to time and patient oriented x3 HENMT Head: Yes normal to inspection, Yes No palpable skull fracture present, Yes normocephalic and Yes atraumatic Eyes General: appearance normal, both eyes and all related structures Neck Neck: Yes normal visual inspection, Yes full ROM, Yes no lymphadenopathy, Yes no meningeal signs, Yes trachea midline, Yes supple, No anterior neck swelling and No tender Chest Chest palpation & inspection: normal inspection of the chest and normal palpation of entire chest wall Resp Effort & Inspection: normal respiratory effort and able to speak in complete sentences Auscultation: clear to auscultation bilaterally Cardio Jugular venous distension: no JVD Heart sounds: S1 normal heart sound present and S2 normal heart sound present GI Inspection: Yes normal to inspection and No abdominal wall ecchymosis Palpation (GI): Soft to palpation, not firm, nontender, no guarding and not rigid General: No CVA tenderness and Yes no CVA tenderness Back/Spine/Pelvis Back: no CVA tenderness, No CVA tenderness and No back tenderness Skin General skin exam: no rashes or lesions noted, elasticity normal and turgor normal Neuro General: oriented to person, oriented to place, oriented to time, patient oriented x3, gait normal, tone normal, moves all extremities, Normal light touch and pain sensation, no meningeal signs, no focal motor deficits, CN's II-XI intact bilaterally and normal sensation to monofilament Extrem General: Yes normal to inspection and Yes full ROM Upper/lower leg/hip images: 2 1. area of tenderness on palpation and palpable mass not fluctuant. Slight erythema. Negative for warmth. N egative for swelling of extremity calf tenderness. Negative for pain edema. Extremity motor/ neuro/vascular exam intact Psych Appearance: grossly normal, well kempt and not disheveled Medical Decision Making Medical Decision Making MDM Narrative: 42-year-old female presents to ED for medial aspect of left leg tender area without any trauma. Area of palpable for mass that is nonfluctuant slightly erythema without any warmth. Patient is on control pills. Patient states no medical history. Ultrasound x-ray ordered. 1:04 pm: Patient's x-ray came back normal. Ultrasound of lower extremity shows superficial thrombophlebitis in the Grates saphenous vein. Negative for DVT. Case was discussed with vascular surgeon Dr. Monaco who does not recommend starting Eliquis or any other anticoagulants. Patient informed warm compression and NSAIDs as treatment. Patient informed also to call OBGYN to informed them that she had a superficial thrombophlebitis and should she stop taking oral control pills. Differential Diagnosis Differential Diagnoses: The differential diagnosis associated with the presentation includes ( DVT, cellulitis, osteomyelitis, fracture necrotizing fasciitis, number syndrome,) Admission/Observation Consideration of admission/observation: Escalation of care including admission/observation considered Consult Healthcare Provider Management of the patient was discussed with: Oliver Filter Operator ( Dr. Monaco vascular surgeon) Independent Interpretation I performed an independent interpretation of an: Ultrasound Radiology Impression Discussion of test interpretation with radiology: I have reviewed the radiologist's reading. External Record Review External record reviewed: Other ( prior ED visit) Prescription Management I considered prescription management with: Pain Medication Discharge Plan Discharge Clinical Impression: Superficial thrombophlebitis Patient Disposition: Home, Self-Care Instructions: Superficial Thrombophlebitis (ED) Additional Instructions: blood thinners are not indicated at this time. Recommend walk compress 4 times a day for 15 minutes on area of pain where superficial thrombophlebitis is present. You will be discharged with NSAIDs. Please follow-up with your primary care provider. Also contact with your OBGYN to see if you should be taken off control due to having superficial thrombophlebitis. Return to the ED immediately for any increased swelling of lower extremity, calf pain, chest pain, shortness of breath, coughing up blood, or any other concerning symptoms. Prescriptions: New naproxen 500 mg tablet 500 mg PO BID PRN (Reason: pain) 7 Days Qty: 14 0RF No Action omeprazole 20 mg Capsule,Delayed Release(Dr/Ec) 20 mg PO DAILY loratadine [Claritin] 10 mg Tablet 10 mg PO DAILY doxycycline hyclate 100 mg capsule 100 mg PO BID Qty: 14 0RF amoxicillin-pot clavulanate 875-125 mg tablet 1 tab PO BID Qty: 14 0RF Stand Alone Forms: Work/School Release Interventions: ED Discharge Assessment Last Done: 03/17/23 13:14 Discharge Date/Time: 03/17/23 13:14 Print Language: Telugu
[2023-03-17 12:49] VITALS: BP 136/84; PULSE 83; RESP 18; TEMP 36.8; O2SAT 98
== END 2023-03-17 13:14 | disposition home or self-care (01) ==
PROVIDERS: Emergency Provider Emergency Medicine; PCP Internal Medicine
DX: I80.02 Phlebitis and thrombophlebitis of superficial vessels of left lower extremity (principal); R22.42 Localized swelling, mass and lump, left lower limb
CPT/HCPCS: 73590; 93971; 99282; 99284

== ENCOUNTER 2023-10-04 09:24 | Outpatient (REF) | payer BC, SELFPAY ==
[2023-10-04 13:15] LABS: MANUAL DIFF FLAG NO
[2023-10-04 13:25] LABS: Estimated Average Glucose 108 mg/dL; Hemoglobin A1c % 5.4 % (<6.0)
[2023-10-04 13:30] LABS: Basophils Percent Auto 0.6 % (0-2); Eosinophils Absolute Auto 0.2 X10*3/uL (0.0-0.4); Hematocrit 40.9 % (37.0-47.0); Hemoglobin 13.5 g/dl (12.0-16.0); Imm Gran Abs Auto 0.02 X10*3/uL (0.00-0.03); Imm Gran Pct Auto 0.4 % (0.0-0.4); Lymphocytes Absolute Auto 1.3 X10*3/uL (1.2-4.9); Mean Corpuscular Hemoglobin 27.7 pg (27.0-33.0); Mean Corpuscular Volume 83.8 fL (80.0-98.0); Mean Platelet Volume 9.3 fL (9.4-12.3); Monocytes Absolute Auto 0.3 X10*3/uL (0.1-1.2); Monocytes Percent Auto 5.9 % (2-11); Neutrophils Absolute Auto 3.3 x10*3/uL (2.0-8.3); Neutrophils Percent Auto 64.1 % (45-73); Platelet Count 347 X10*3/uL (160-400); Red Blood Count 4.88 X10*6/uL (4.20-5.50); Red Cell Distribution Width 14.3 % (11.0-16.0); White Blood Count 5.1 X10*3/uL (4.8-10.8)
[2023-10-04 14:00] LABS: Alanine Aminotransferase 18 U/L (0-31); Albumin Level 4.2 g/dL (3.5-5.0); Alkaline Phosphatase 77 U/L (39-117); Anion Gap 10 (12-20); Aspartate Amino Transferase 23 U/L (5-31); Bilirubin Total 0.7 mg/dL (0.0-1.0); Blood Urea Nitrogen 10 mg/dL (9-16); Calcium 9.7 mg/dL (8.4-10.2); Carbon Dioxide 26 mmol/L (22-29); Chloride 106 mmol/L (96-108); Cholesterol 201 mg/dL (<200); Estimated Glomerular Filt Rate > 60; Glucose Random 77 mg/dL (60-115); HDL Cholesterol 69 mg/dL (>40); LDL Cholesterol Calculated 116 mg/dL (<100); Potassium 4.5 mmol/L (3.3-5.1); Sodium 137 mmol/L (135-145); Total Protein 7.5 g/dL (6.5-8.0); Triglycerides 84 mg/dL (<150)
[2023-10-04 14:11] LABS: Thyroid Stimulating Hormone 0.69 uIU/mL (0.32-4.0); Vitamin D 25-OH Total 52.4 ng/mL (>30)
== END 2023-10-04 09:25 | disposition home or self-care (01) ==
LOC: HO.MANLDS 09:24
PROVIDERS: Visit Provider Physician Assistant
DX: Z00.00 Encounter for general adult medical examination without abnormal findings (principal)
CPT/HCPCS: 36415; 80053; 80061; 82306; 83036; 84439; 84443; 85025